=== PATIENT | female | born 1985 | race Caucasian/White ===

== ENCOUNTER 2019-07-10 08:22 | Inpatient (IN) | payer OTHER ==
[~2019-07-10] VITALS: Ht 165.1 cm; Wt 75.5 kg
[~2019-07-10 08:22] MED LIST: MAGNESIUM250 M1 PO; PRENATAL
[2019-07-11] VITALS (17 sets, daily range): BP systolic 70–125; BP diastolic 58–104; PULSE 65–100; TEMP 97.8–98.7
--- NOTE | 2019-07-11 08:40 | NUR ---
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 patient reports occasional contractions and denies vaginal bleeding. Patient reports possible leaking of fluid since last night. Reports normal movement. Plan of care reviewed. EFM explained and placed. VSS. Amniotrace negative. 904- IV started and labs obtained. LR infusing. Consents explained and signed. Denies questions. Assessment completed. Rafita Estrella CRNA at bedside. 909- Dr. Amaya at bedside, breech presentation confirmed via bedside sono. Reactive FHR strip obtained. Preop prep completed per protocol.
[2019-07-11 09:02] LABS: BASO # 0.1 (0.0-0.2); BASO % 0.7 % (0.0-2.0); EOS # 0.1 (0.0-0.7); EOS % 0.7 % (0-4.0); GRAN # 8.1 (1.4-6.5); GRAN % 66.5 % (42.2-75.2); HEMATOCRIT 39.8 % (37.0-47.0); HEMOGLOBIN 13.6 g/dl (12.5-16.0); LYMPH # 2.8 (1.2-3.4); LYMPH % 23.1 % (20.0-51.0); MEAN CELL VOLUME 90 fl (80.0-100.0); MEAN CORPUSCULAR HEMOGLOBIN 31 pg (27.0-31.0); MEAN CORPUSCULAR HGB CONC 34 g/dl (33.0-37.0); MEAN PLATELET VOLUME 11.6 fl (7.4-10.4); MONO # 1.1 (0.1-0.6); MONO % 8.7 % (1.7-9.3); PLATELET COUNT 243 K/mm3 (130-400); RED BLOOD COUNT 4.43 M/mm3 (4.10-5.30); REDCELL DISTRIBUTION WIDTH-CV 13.1 % (11.5-14.5)
[2019-07-12 08:32] VITALS: BP 104/69; PULSE 79; TEMP 98
[2019-07-12] MEDS ORDERED: IBU600 MG PO (09:23)
[2019-07-12] MEDS ORDERED: PERCOCET 325 MG1 TA2 PO (09:23)
[2019-07-12 16:00] VITALS: BP 118/80; PULSE 83; TEMP 98.5
[2019-07-12 22:00] VITALS: BP 109/64; PULSE 78; TEMP 97.5
[2019-07-13 07:30] VITALS: BP 105/64; PULSE 73; TEMP 98.3
== END 2019-07-13 12:30 | disposition home or self-care (01) | DRG 788 ==
LOC: OB 08:22
PROVIDERS: ADMIT Obstetrics & Gynecology
PROC: 10D00Z1 Extraction of Products of Conception, Low, Open Approach (ICD-10-PCS; principal; 2019-07-11)
DX: O32.1XX0 Maternal care for breech presentation, not applicable or unspecified (principal); Z3A.39 39 weeks gestation of pregnancy; Z37.0 Single live birth; O34.03 Maternal care for unspecified congenital malformation of uterus, third trimester; Q51.20 Other doubling of uterus, unspecified; Z88.0 Allergy status to penicillin
CPT/HCPCS: J0690; J1885; J2405; J2590; J3010; J7120

== ENCOUNTER → 2019-07-15 | Outpatient (CLI) | payer OTHER ==
[~2019-07-15] MED LIST changes: +IBU600 MG PO; +PERCOCET 325 MG1 TA2 PO
--- NOTE | 2019-07-15 18:23 | NUR ---
Pt, Kiara Hwangnaseem, presents to walk-in clinic with four day old baby girl, Jazzmine Joya, for a evaluation. Jazzmine was born by c/section on [birth year] and weighed 5#13.1oz (2640 gms). She was 39.5 weeks gestation at delivery and was dx as SGA. Discharge weight on 07/13/19 was 5#7oz (2470 gms). She did not require and supplementation while in the hospital. Pt reports her milk came in yesterday, she is concerned Jazzmine is not transfering very well as pt's breasts are still firm after . She also reports only 3 voids and 1 stool in the last 24 hours. Pt has pumped a few times and Jazzmine has been supplemented 1oz EBM x 4 feedings in the last 14 hours. Today Jazzmine weighs 5#6.1oz (2440 gms). Pt has large nipples but baby able to latch, taking in the whole nipple. After nursing bilaterally with some breast massage and compression Jazzmine had a weight gain of 0.5oz (14 gms). Pt has some EBM with her, Jazzmine drinks about 15ml from it. POC: 3 step feeding plan: offer breast, supplement EBM (about 1oz per feeding) and pump. F/U: Anticipate at clinic next week, or soon if pt elects to schedule outpatient consult. Jazzmine has an appointment with Dr. Ghotra this afternoon. Questions invited and answered.
== END ==
LOC: LAC 10:44
DX: Z39.1 Encounter for care and examination of lactating mother (principal)

== ENCOUNTER → 2019-07-22 | Outpatient (CLI) | payer OTHER ==
--- NOTE | 2019-07-22 12:41 | NUR ---
Pt, Kiara Joya, presents to walk-in clinic with 11 day old baby girl, Jazzmine Joya, for a evaluation. Jazzmine was born on [birth year] and weighed 5#13.1oz. She was born at 39.5 weeks gestation and was dx as SGA. From our previous clinic visit, Kiara has been diligent about the 3-step feeding plan. Jazzmine now drinks 2-2.5oz per bottle feeding, after attempting at the breast. Pt reports some feedings she feels Jazzmine nurses well and she feels the breast softens. Other feedings she is less interested. Pt pumps 1-1.5oz after baby nurses "well" and upto 4 oz if baby does not breastfeed first. Today, Jazzmine weighs 5#14.3oz, a gain of 8.2oz over the last week. After today Jazzmine only transfers 1gm. She is bottle fed EBM after, taking about 40ml. Jazzmine appears to continue to struggle with transfer with the pt's large nipples. Pt is committed to continue working with , and understands the limitations at this stage. POC: Continue and following with 3-step plan. F/U: Anticipate at clinic next week. Questions invited and answered.
== END ==
LOC: OLC 10:29
DX: Z39.1 Encounter for care and examination of lactating mother (principal); Z71.89 Other specified counseling

== ENCOUNTER → 2019-08-05 | Outpatient (CLI) | payer OTHER ==
--- NOTE | 2019-08-05 12:08 | NUR ---
Kiara Arnold into the walk in clinic with 3 week old Nohemi for evaluation and weight check. Kiara and Nohemi have been into the clinic on two previous occasions, please see previous notes. Nohemi's weight on 07/11/19 was 5#7oz. Early was complicated by infant being dx as SGA at , slow weight gain, and mother having large nipples with 's small mouth. Kiara has been working on milk supply and weight gain by utilizing the three step feeding plans. Two week's ago, Nohemi's prefeed weight was noted as 5#14.3 oz and she only took 1 ml from the breast. Today, Nohemi's prefeed weight was noted as 7# 2.1 oz (3234 g), a gain of nearly 20 oz in 14 days. Kiara states Nohemi has been going to the breast 4 times per day and taking 8 bottles of 2-3 oz per day. Reports diapers to be WNL. While at the breast in clinic, Nohemi took a total of 1.5 oz from the breast. She still appears to struggle with gettting enought tissue in her mouth d/t mom's large nipple side, but this was a significant increase from last week. After , Nohemi took 1 oz EBM from the bottle and appeared satisfied. POC: Offer breast with each feeding, offer 1-2 oz EBM after feeding based on feeding cues or 3 oz if latch not successful. Questions encouraged and answered. Understanding verbalized.
== END ==
LOC: LAC 10:19
DX: Z39.1 Encounter for care and examination of lactating mother (principal); Z71.89 Other specified counseling

== ENCOUNTER → 2019-11-11 | Outpatient (CLI) | payer OTHER ==
--- NOTE | 2019-11-11 14:11 | NUR ---
Kiara into clinic with 4 month old daughter Jazzmine. Kiara states she has been pumping and feeding Jazzmine, due to early latch issues, except a morning and evening feed Jazzmine latches to they breast. Kiara states that Jazzmine has refused to nurse for the last week. Kiara report she has tried skin to skin, nursing in different positions, nursing at different times of the day, etc. but nothing has helped. While in clinic, Kiara attempted to latch Jazzmine with and without the use of a nipple shield; however, Jazzmine became fussy at the breast and would not latch. POC: Continue to offer breast as she has been doing. Continue to pump and feed.
== END ==
LOC: LAC 10:49
DX: Z39.1 Encounter for care and examination of lactating mother (principal); Z71.89 Other specified counseling